=== PATIENT | male | born 1985 | race Caucasian/White ===

== ENCOUNTER 2021-07-07 10:46 | Emergency (ER) | payer BC ==
[2021-07-07 11:21] LABS: Absolute Lymphocytes (CBC) 2.5 K/uL (0.7-4.9); Basophils % 0.6 % (0-1.3); Hematocrit 39.8 % (39.6-49.0); Lymphocytes % 26.4 % (15.3-44.8); MPV 7.1 fL (7.6-11.3); RBC Red Blood Cell Count 5.74 M/uL (4.33-5.43)
[2021-07-07 11:25] LABS: Protime INR 0.99
[2021-07-07 11:31] LABS: Potassium 4.2 mmol/L (3.5-5.1)
--- NOTE | 2021-07-07 12:04 | RAD REPORT ---
EXAM DESCRIPTION: USExtremity Venous Uni Ltd07/07/2021 11:56 am CLINICAL HISTORY: Right leg pain COMPARISON: None. FINDINGS: Right common femoral, superficial femoral, popliteal and right posterior tibial veins are compressible and demonstrate augmentation. Doppler demonstrates good flow. Acute thrombus is present within varicose veins of the right calf IMPRESSION: No evidence of deep venous thrombosis involving the right lower extremity. Acute thrombus within a varicose veins of the right calf
[2021-07-07 12:17] LABS: Platelet Estimate ADEQ
[2021-07-07 12:18] LABS: Anisocytosis 1+; Blood Morphology Comment NOTED (NOT SEEN); Hypochromasia 1+
--- NOTE | 2021-07-07 12:22 | ER ---
Nurse's Notes [facility] Name: Ammon Yañez Age: 35 yrs Sex: Male : 1985 Arrival Date: 07/07/2021 Time: 10:49 Bed 28 Private MD: Diagnosis: Thrombus in varicose vein right leg Presentation: 07/07 10:53 Chief complaint: Patient states: Spontaneous bruising to right lower extremity, denies jl7 trauma, reports pain with palpation. Coronavirus screen: At this time, the client does not indicate any symptoms associated with coronavirus-19. Ebola Screen: No symptoms or risks identified at this time. Risk Assessment: Do you want to hurt yourself or someone else? Patient reports no desire to harm self or others. Onset of symptoms is unknown. 10:53 Method Of Arrival: Ambulatory 7 10:53 Acuity: GARIMA 3 jl7 10:56 Initial Sepsis Screen: Does the patient meet any 2 criteria? No. Patient's initial jl7 sepsis screen is negative. Does the patient have a suspected source of infection? No. Patient's initial sepsis screen is negative. Historical: - Allergies: 10:54 No Known Allergies; jl7 - Home Meds: 10:54 Fluoxetine Oral [Active]; Propranolol Oral [Active]; jl7 10:57 testerone replacement therapy [Active]; jl7 - PMHx: 10:54 ADD/ADHD; Anxiety; jl7 - Immunization history:: Client reports having NOT received the Covid vaccine. - Social history:: Smoking status: unknown. Screenin:01 Abuse screen: Denies threats or abuse. Nutritional screening: No deficits noted. ap3 Tuberculosis screening: No symptoms or risk factors identified. Fall Risk None identified. Assessment: 11:00 General: Appears comfortable, Behavior is calm, cooperative, appropriate for age. Pain: ap3 Complains of pain in right leg and left leg Alleviated by not touching it Aggravated by touch. Neuro: Level of Consciousness is awake, alert, obeys commands, Oriented to person, place, time, situation, Appropriate for age Moves all extremities. Gait is steady, Speech is normal. Cardiovascular: Capillary refill < 3 seconds. Respiratory: Airway is patent Respiratory effort is even, unlabored, Respiratory pattern is regular, symmetrical. Derm: Bruising that is on right leg and left leg. Vital Signs: 10:53 Pulse 115; Resp 15; Temp 97.1; Pulse Ox 100% ; Weight 102.06 kg; Height 5 ft. 9 in. jl7 (175.26 cm); Pain 5/10; 10:56 BP 143 / 92; jl7 10:53 Body Mass Index 33.23 (102.06 kg, 175.26 cm) jl7 ED Course: 10:49 Patient arrived in ED. mr 10:50 Cayla Vazquez FNP-C is [facility]. kb 10:50 Carlo Beard MD is Attending Physician. kb 10:54 Triage completed. jl7 10:56 Arm band placed on right wrist. jl7 10:59 Sindhu Mcbride, RN is Primary Nurse. ap3 11:01 Patient has correct armband on for positive identification. Bed in low position. Call ap3 light in reach. Side rails up X 1. Pulse ox on. NIBP on. Door closed. Noise minimized. 11:56 US Extremity Venous Unilateral Ltd In Process Unspecified. EDMS 11:56 Patient taken to an exam room, via wheelchair. ap3 12:35 No provider procedures requiring assistance completed. IV discontinued, intact, ap3 bleeding controlled, No redness/swelling at site. Pressure dressing applied. Administered Medications: No medications were administered Outcome: 12:22 Discharge ordered by . kb 12:35 Discharged to home ambulatory. ap3 12:35 Condition: good 12:35 Discharge instructions given to patient, Instructed on discharge instructions, follow up and referral plans. Demonstrated understanding of instructions, follow-up care. 12:37 Patient left the ED. ap3 Signatures: Dispatcher [employer] EDAK Cayla Vazquez FNP-C FNP-Ckb RiveraWanda mr ParedesAsh, RN RN jl7 Sindhu Mcbride, RN RN ap3
--- NOTE | 2021-07-07 12:22 | EDPHYS ---
Physician Documentation [facility] Name: Ammon Yañez Age: 35 yrs Sex: Male : 1985 Arrival Date: 07/07/2021 Time: 10:49 Bed 28 Private MD: ED Physician Carlo Beard HPI: 07/07 12:16 This 35 yrs old Male presents to ER via Ambulatory with complaints of kb Bruising. 12:18 The patient presents with pain, swelling, bruising, redness. The complaints affect the kb right velasco. Context: The problem was sustained at home, resulted from an unknown cause, the patient can fully bear weight, the patient is able to ambulate. Onset: The symptoms/episode began/occurred today. Modifying factors: The symptoms are alleviated by nothing. the symptoms are aggravated by nothing. Associated signs and symptoms: Pertinent positives: swelling, Pertinent negatives calf tenderness, fever, nausea, numbness, rash, tingling, vomiting, warmth, weakness. Treatment prior to arrival includes: no previous treatment. Severity of symptoms: At their worst the symptoms were mild, moderate, in the emergency department the symptoms are unchanged. The patient has not experienced similar symptoms in the past. The patient has not recently seen a physician. Pt reports he was outside this morning, noticed some pain to leg and saw bruising, redness and swelling when he looked at it. Denies injury or trauma. Historical: - Allergies: 10:54 No Known Allergies; jl7 - Home Meds: 10:54 Fluoxetine Oral [Active]; Propranolol Oral [Active]; jl7 10:57 testerone replacement therapy [Active]; jl7 - PMHx: 10:54 ADD/ADHD; Anxiety; jl7 - Immunization history:: Client reports having NOT received the Covid vaccine. - Social history:: Smoking status: unknown. ROS: 12:15 Constitutional: Negative for fever, chills, and weight loss. kb 12:15 Skin: Positive for ecchymosis, erythema, of the right velasco. 12:15 All other systems are negative. Exam: 12:15 Constitutional: This is a well developed, well nourished patient who is awake, alert, kb and in no acute distress. Head/Face: Normocephalic, atraumatic. ENT: Moist Mucous membranes Cardiovascular: Regular rate and rhythm with a normal S1 and S2. No gallops, murmurs, or rubs. No pulse deficits. Respiratory: Respirations even and unlabored. No increased work of breathing, no retractions or nasal flaring. MS/ Extremity: Pulses equal, no cyanosis. Neurovascular intact. Full, normal range of motion. Neuro: Awake and alert, GCS 15, oriented to person, place, time, and situation. Moves all extremities. Normal gait. Psych: Awake, alert, with orientation to person, place and time. Behavior, mood, and affect are within normal limits. 12:15 Skin: injury, redness and bruising to medial lower right leg. Vital Signs: 10:53 Pulse 115; Resp 15; Temp 97.1; Pulse Ox 100% ; Weight 102.06 kg; Height 5 ft. 9 in. jl7 (175.26 cm); Pain 5/10; 10:56 BP 143 / 92; jl7 10:53 Body Mass Index 33.23 (102.06 kg, 175.26 cm) jl7 MDM: 10:57 Patient medically screened. kb 12:12 Data reviewed: vital signs, nurses notes. Data interpreted: Pulse oximetry: on room air kb is 100 %. Interpretation: normal. 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 07/07 10:58 Order name: CBC with Diff; Complete Time: 12:23 kb 07/07 10:58 Order name: Basic Metabolic Panel; Complete Time: 11:36 kb 07/07 10:58 Order name: Protime (+inr); Complete Time: 11:29 kb 07/07 10:58 Order name: Ptt, Activated; Complete Time: 11:29 kb 07/07 10:58 Order name: US Extremity Venous Unilateral Ltd; Complete Time: 12:09 kb 07/07 12:17 Order name: Manual Differential; Complete Time: 12:23 EDMS 07/07 10:58 Order name: IV Start; Complete Time: 11:11 kb Administered Medications: No medications were administered Disposition: 13:10 Co-signature as Attending Physician, Carlo Beard MD I agree with the assessment and kdr plan of care. Disposition Summary: 07/07/21 12:22 Discharge Ordered Location: Home kb Condition: Stable kb Diagnosis - Thrombus in varicose vein right leg kb Followup: kb - With: Emergency Department - When: As needed - Reason: Worsening of condition Followup: kb - With: Private Physician - When: 2 - 3 days - Reason: Recheck today's complaints, Continuance of care, Re-evaluation by your physician Discharge Instructions: - Discharge Summary Sheet kb - Varicose Veins kb Forms: - Medication Reconciliation Form kb - Thank You Letter kb - Antibiotic Education kb - Prescription Opioid Use kb - Work release form eb Signatures: Dispatcher [employer] EDMS Cayla Vazquez, SLURRY WORKER-C MENDOZA-Carlo Calero MD MD kdr Leal, Jahala RN RN jl7 Corrections: (The following items were deleted from the chart) 12:12 12:12 Counseling: I had a detailed discussion with the patient and/or guardian kb regarding: the historical points, exam findings, and any diagnostic results supporting the discharge/admit diagnosis, radiology results, the need for outpatient follow up, 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
[2021-07-07 12:42] VITALS: TEMP 97.1; O2SAT 100
[2021-07-07 12:43] VITALS: BP 143/92
== END 2021-07-07 12:37 | disposition home or self-care (01) ==
LOC: ER 10:46
DX: I82.811 Embolism and thrombosis of superficial veins of right lower extremity (principal); F41.9 Anxiety disorder, unspecified; F90.9 Attention-deficit hyperactivity disorder, unspecified type
CPT/HCPCS: 36415; 80048; 85025; 85610; 85730; 93971; 99283

== ENCOUNTER 2021-11-21 12:48 | Emergency (ER) | payer BC, OTHER ==
--- OUTSIDE RECORDS SUMMARY | 2021-11-21 12:52 | XMS REPORT | Continuity of Care Document ---
:1985 Author Organization [facility] t Address [address] [place] [address] Care Team Providers Name Role Phone Pcp, Does Not Have A Primary Care Physician SALVATORE Attending Clinician Unavailable Salvatore ASHLEY Attending Clinician ELIN Attending Clinician Unavailable MD Shruti WOTRHINGTON Attending Clinician Unavailable Lab, Fam Pob I Attending Clinician Unavailable Jorge ASHLEY Attending Clinician JORGE Attending Clinician Unavailable Doctor Unassigned, Name Attending Clinician Unavailable ELIN Admitting Clinician Unavailable MD Shruti WORTHINGTON Admitting Clinician Unavailable Payers Payer Name Policy Type Policy Number Effective Date Expiration Date [facility] [id number] 2021 PPO 00:00:00 Problems Condition Condition Condition Status Onset Resolution Last Treating Co mments Source Name Details Category Date Date Treatment Clinician Date Attention Problem Active 2018-09-04 Me moria deficit 05:00:58 l hyperactiv Luciano n ity Attention disorder deficit (disorder) hyperactiv ity disorder (disorder) Active Problem 09/04/2018 [facility] Allergic Problem Active 2018-09-04 Mem oria dispositio 05:00:58 l n Allergic Luciano n (disorder) dispositio n (disorder) Active Problem 09/04/2018 [facility] Knee pain Problem Active 2018-09-04 Me moria (finding) 05:00:58 l Knee Mauricio pain (finding) Active Problem 09/04/2018 [facility] No known No known Disease Unive rs active active ity of problems problems [facility] History of Past Illness Condition Condition Condition Status Onset Resolution Last Treating Co mments Source Name Details Category Date Date Treatment Clinician Date Other tear Problem 2017-092018-09-04 2018-09-04 Memoria of medial 2-11 05:00:58 05:00:58 l meniscus, Other 06:00: Luciano n current tear of 00 injury, medial left knee, meniscus, subsequent current encounter injury, left knee, subsequent encounter 09/02/2018 09/04/2018 [facility] Allergies, Adverse Reactions, Alerts Allergy Allergy Status Severity Reaction(s) Onset Inactive Treating Comm ents Source Name Type Date Date Clinician Ibuprofe Propensi Active Other - See "bleed" Univers n ty to comments 11-11 ity of adverse 00:00: [place] reaction 00 Medical s Branch IBUPROFE DRUG Active Med Other-Cmnt Univ ers N INGREDI 11-11 ity of 00:00: [place] 00 Medical Branch NO KNOWN Drug Active Univers ALLERGIE Class ity of S [facility] Social History Social Habit Start Date Stop Date Quantity Comments Source Exposure to Not sure [facility] SARS-CoV-2 [place] [facility] (event) [place] Tobacco use and 2021-11-11 2021-11-11 Never used Universit y of exposure 00:00:00 00:00:00 [facility] Alcohol intake 2021-11-11 2021-11-11 Lifetime University of 00:00:00 00:00:00 non-drinker [facility] (finding) [place] Sex Ass[birth year] Universit y of 00:00:00 00:00:00 [facility] Smoking Status Start Date Stop Date Source Unknown if ever smoked Universit y of [facility] Never smoker [facility] Medications Ordered Filled Start Stop Current Ordering Indication Dosage Frequency Signature Comments Components Source Medication Medication Date Date Medication? Clinician (SIG) Name Name methylPREDN 2021- No [id number] 40mg Univers ISolone sod 11-11 ity of succ 21:45: 20:55 [place] (SOLU-MEDRO 00 :00 Medical L (PF)) Branch injection 40 mg methylPREDN 2021- No [id number] 40mg 40 mg, Univers ISolone sod 11-11 Intravenou i ty of succ 21:45: 20:55 s, ONCE, 1 [place] (SOLU-MEDRO 00 :00 dose, On Medi catie L (PF)) Sat Branch injection 11/11/21 at 40 mg 1545, Routine guaiFENesin 2021-0 Yes [id number] 400mg Take 1 Univers 400 mg 2-19 tablet by ity of tablet 00:00: mouth [place] 00 every 4 Medical (four) Branch hours as needed for Cough. bromphenira 2-0 Yes [id number] 5mL Take 5 mL Univers mine-pseudo 2-19 by mouth 4 it y of ephedrine-D 00:00[place] (four[place] (BROMFED 00 times Medical DM) 2-30-10 daily as Bran ch mg/5 mL needed for syrup Congestion /Allergies . benzonatate 2021-0 Yes [id number] 200mg Take 2 Univers 100 mg 2-19 capsules ity of capsule 00:00: by mouth [place] 00 every 8 Medical (eight) Branch hours as needed for Cough. albuterol 2-0 Yes [id number] 2.5mg Inhale 3 Univers 2.5 mg /3 2-19 mL every 4 ity of mL (0.083 00:00: (four) [place] %) 00 hours as Medical nebulizer needed for Bran ch solution Wheezing or Shortness of Breath. ipratropium 2021-0 Yes [id number] .5mg Inhale 2.5 Univers 0.02 % 2-19 mL every 4 ity of nebulizer 00:00: (four) [place] solution 00 hours as Medical needed for Branch Wheezing or Shortness of Breath. Nebulizer & 2021-0 Yes [id number] Use as Univers Compressor 2-19 directed ity o f For Neb 00:00: [place] Vicky 00 Medical Branch guaiFENesin 2-0 Yes [id number] 400mg Take 1 Univers 400 mg 2-19 tablet by ity of tablet 00:00: mouth [place] 00 every 4 Medical (four) Branch hours as needed for Cough. bromphenira 2-0 Yes [id number] 5mL Take 5 mL Univers mine-pseudo 2-19 by mouth 4 it y of ephedrine-D 00:00: (four[place] (BROMFED 00 times Medical DM) 2-30-10 daily as Bran ch mg/5 mL needed for syrup Congestion /Allergies . benzonatate 2-0 Yes [id number] 200mg Take 2 Univers 100 mg 2-19 capsules ity of capsule 00:00: by mouth [place] 00 every 8 Medical (eight) Branch hours as needed for Cough. albuterol Yes [id number] 2.5mg Inhale 3 Univers 2.5 mg /3 2-19 mL every 4 ity of mL (0.083 00:00: (four) [place] %) 00 hours as Medical nebulizer needed for Bran ch solution Wheezing or Shortness of Breath. ipratropium Yes [id number] .5mg Inhale 2.5 Univers 0.02 % 2-19 mL every 4 ity of nebulizer 00:00: (four) [place] solution 00 hours as Medical needed for Branch Wheezing or Shortness of Breath. Nebulizer & Yes [id number] Use as Univers Compressor 2-19 directed ity o f For Neb 00:00: [place] Vicky 00 Medical Branch predniSONE 2021- Yes [id number] 40mg Take 2 Univers 20 mg 2-19 02-25 tablets by ity of tablet 00:00: 05:59 mouth [place] 00 :00 daily for Medical 5 days. Branch predniSONE 2021- Yes [id number] 40mg Take 2 Univers 20 mg 2-19 02-25 tablets by ity of tablet 00:00: 05:59 mouth [place] 00 :00 daily for Medical 5 days. Branch Levalbutero 2017-09 No 0.63 mg = M emoria l 0.21 2-11 3 mL, l MG/ML 18:00: ELIO Gray Herman n Inhalant 00 Once PRN Solution for [Xopenex] wheezing, first dose 09/02/18 12:00:00 CONTRACT SPECIALIST Ondansetron 2017-09 No 4 mg = 2 Me moria 2-11 mL, l 18:00: Injection, [place] 00 IV Push, q15min PRN for nausea, order duration: 2 doses, first dose 09/02/18 12:00:00 CONTRACT SPECIALIST, stop date Limited # of times Promethazin 2017-09 No 12.5 mg = M emoria e 2-11 0.5 mL, l 18:00: Injection, [place] 00 IM, Once PRN for vomiting, first dose 09/02/18 12:00:00 CONTRACT SPECIALIST Saline Lock 2017-09 No 10 mL, Chuck slick Flush 2-11 Soln, IV l 18:00: Push, As Indicated PRN for flush, first dose 09/02/18 12:00:00 CONTRACT SPECIALIST LR 1,000 mL 2017-09 No 1,000 mL, M emoria 2-11 IV, 75 l 18:00: mL/hr, start date 09/02/18 12:00:00 CONTRACT SPECIALIST Diphenhydra 2017-09 No 25 mg = Mem oria mine 2-11 0.5 mL, l 18:00: Injection, IV Push, Once PRN for itching, first dose 09/02/18 12:00:00 CONTRACT SPECIALIST Dilaudid 2017-09 No 0.5 mg = Memor ia 2-11 0.5 mL, l 18:00: Injection, IV Push, q10min PRN for pain severe (7-10), first dose 09/02/18 12:00:00 CONTRACT SPECIALIST Demerol HCl 2017-09 No 12.5 mg = M emoria 2-11 0.5 mL, l 18:00: Injection, IV Push, Once PRN for shivers, first dose 09/02/18 12:00:00 CONTRACT SPECIALIST Lactated 2017-09 No IV, start Chuck slick [place] -11 date l Injection 17:57: 09/02/18 11:57:00 CONTRACT SPECIALIST, stop date 09/02/18 11:57:00 CONTRACT SPECIALIST ketorolac 2017-09 No 30 mg = 1 Mem oria 2-11 mL, l 17:47: Injection, IV, Once, first dose 09/02/18 11:47:00 CONTRACT SPECIALIST, stop date 09/02/18 11:47:00 CONTRACT SPECIALIST ondansetron 2017-09 No 4 mg = 2 Me moria 2-11 mL, l 17:47: Injection, IV, Once, first dose 09/02/18 11:47:00 CONTRACT SPECIALIST, stop date 09/02/18 11:47:00 CONTRACT SPECIALIST Misc 2017-09 No 1,000 mL, Memoria Medication 2-11 Soln-IV, l 17:45: IV, Once, first dose 09/02/18 11:45:00 CONTRACT SPECIALIST, stop date 09/02/18 11:45:00 CONTRACT SPECIALIST fentaNYL 2017-09 No 50 mcg = 1 Mem oria 2-11 mL, l 17:34: Injection, [place] 00 IV, Once, first dose 09/02/18 11:34:00 CONTRACT SPECIALIST, stop date 09/02/18 11:34:00 CONTRACT SPECIALIST fentaNYL 2017-09 No 50 mcg = 1 Mem oria 2-11 mL, l 17:20: Injection, [place] 00 IV, Once, first dose 09/02/18 11:20:00 CONTRACT SPECIALIST, stop date 09/02/18 11:20:00 CONTRACT SPECIALIST fentaNYL 2017-09 No 50 mcg = 1 Mem oria 2-11 mL, l 17:01: Injection, [place] 00 IV, Once, first dose 09/02/18 11:01:00 CONTRACT SPECIALIST, stop date 09/02/18 11:01:00 CONTRACT SPECIALIST ceFAZolin 2017-09 No 2 gm, Memoria 2-11 Soln-IV, l 16:55: IV [place] 00 Piggyback, Once, first dose 09/02/18 10:55:00 CONTRACT SPECIALIST, stop date 09/02/18 10:55:00 CONTRACT SPECIALIST dexamethaso 2017-09 No 8 mg = 2 Me moria ne 2-11 mL, l 16:46: Injection, [place] 00 IV, Once, first dose 09/02/18 10:46:00 CONTRACT SPECIALIST, stop date 09/02/18 10:46:00 CONTRACT SPECIALIST propofol 2017- No 140 mg = Memor ia 2-11 14 mL, l 16:43: Emulsion, [place] 00 IV, Once, first dose 09/02/18 10:43:00 CONTRACT SPECIALIST, stop date 09/02/18 10:43:00 CONTRACT SPECIALIST lidocaine 2017- No 4 mL, Memoria 2-11 Injection, l 16:43: IV, Once, [place] 00 first dose 09/02/18 10:43:00 CONTRACT SPECIALIST, stop date 09/02/18 10:43:00 CONTRACT SPECIALIST fentaNYL 2017-09 No 100 mcg = Chuck slick 2-11 2 mL, l 16:37: Injection, [place] 00 IV, Once, first dose 09/02/18 10:37:00 CONTRACT SPECIALIST, stop date 09/02/18 10:37:00 CONTRACT SPECIALIST midazolam 2017-09 No 2 mg = 2 [place] slick 2-11 mL, l 16:36: Injection, [place] 00 IV, Once, first dose 09/02/18 10:36:00 CONTRACT SPECIALIST, stop date 09/02/18 10:36:00 CONTRACT SPECIALIST Cefazolin 2017-09 No 2 gm, Memoria 2-11 Soln-IV, l 15:00: IV [place] 00 Piggyback, Once, infuse over 30 minutes, first dose 09/02/18 9:00:00 CONTRACT SPECIALIST, stop date 09/02/18 9:00:00 CONTRACT SPECIALIST, patient weight 50-120 kg, Prophylaxi s LR 1,000 mL 2017-09 No 1,000 mL, M emoria 2-11 IV, 30 l 14:09: mL/hr, start date 09/02/18 8:09:00 CONTRACT SPECIALIST Lidocaine 2017-09 No 0.2 mL, Memor ia 2% 0.2 mL 2-11 Injection, l IV Start 14:09: Subcutaneo Her jiang [[place]] 00 us, Once PRN for other (see comment), first dose 09/02/18 8:09:00 CONTRACT SPECIALIST 3-Bead 2017-09 Yes mg caps, Chuck slick HR 2-10 Oral, qAM, l Amphetamine 19:53: 0 Luciano n aspartate 00 Refill(s), 12.5 MG / ADHD Amphetamine Sulfate 12.5 MG / Dextroamphe tamine saccharate 12.5 MG / Dextroamphe tamine Sulfate 12.5 MG Extended Release Oral Capsule [Mydayis] Glucosamine 2017-09 Yes Oral, 0 Mem oria 2-10 Refill(s), l 19:48: supp Mauricio Loratadine 2017-09 Yes 10 mg = 1 Me moria 10 MG Oral 2-10 tabs, l Tablet 19:48: Oral, Mauricio [Claritin] 00 Daily, # 10 tabs, 0 Refill(s), allergy Acetaminoph 2017-09 Yes tabs, Memor ia en 300 MG / 2-10 Oral, l Codeine 19:48: q6hr, 0 [place] Phosphate 00 Refill(s), 30 MG Oral pain Tablet [Tylenol with Codeine #3] ADHD MED 2017-09 No ADHD MED, Chuck slick 2-10 0 l 19:47: Refill(s), [place] 00 ADHD Vital Signs Vital Name Observation Time Observation Value Comments Source Systolic blood 2021-11-11 20:40:00 145 mm[Hg] Univer sity of pressure [facility] Diastolic blood 2021-11-11 20:40:00 95 mm[Hg] Unive rsity of pressure [facility] Heart rate 2021-11-11 20:39:00 100 /min Universi ty [facility] Body temperature 2021-11-11 20:39:00 36.83 Daija [facility] 2021-11-11 20:39:00 20 /min [facility] Body height 2021-11-11 20:39:00 175.3 cm Universi ty [facility] Body weight 2021-11-11 20:39:00 104.373 kg Universi [facility] BMI 2021-11-11 20:39:00 33.98 kg/m2 [facility] Oxygen saturation in 2021-11-11 20:39:00 100 /min University Arterial blood by [facility] Pulse oximetry Branch Systolic (mm Hg) 2018-09-02 19:23:00 Chuck rial Maur[place] Diastolic (mm Hg) 2018-09-02 19:23:00 Mem orial [place] Respitory Rate 2018-09-02 19:23:00 Memori al Mauricio Respitory Rate 2018-09-02 18:50:00 Memori al [place] Systolic (mm Hg) 2018-09-02 18:50:00 Chuck rial Mauricio Diastolic (mm Hg) 2018-09-02 18:50:00 Mem orial [place] Heart Rate 2018-09-02 18:50:00 Memorial Mauricio Heart Rate 2018-09-02 18:40:00 [facility] [place] Respitory Rate 2018-09-02 18:40:00 Memori al [place] Systolic (mm Hg) 2018-09-02 18:40:00 Chuck rial [place] Diastolic (mm Hg) 2018-09-02 18:40:00 Mem orial Mauricio Heart Rate 2018-09-02 18:30:00 Memorial Maur[place] Temperature Oral (F) 2018-09-02 17:50:00 36.6 Daija [facility] Maur[place] Height 2018-09-02 14:21:00 177.88 cm [facility] [place] Temperature Oral (F) 2018-09-02 14:21:00 37 Daija [facility] Mauricio Height 2018-09-01 19:39:00 177.88 cm Gigi Martínez Procedures Procedure Date / Time Performing Clinician Source Performed XR CHEST 2 VW 2021-11-11 20:59:00 Sindhu Chase [place] keyonna curry [facility] ASSIGNMENT OF BENEFITS 2021-04-30 18:35:25 Doctor Unassigned, No [facility] ARTHROSCOPY KNEE 2018-09-02 17:23:00 [facility] haley W/MEDIAL OR LATERAL MENISCECTOMY [id number] (Left)<sup>1</sup> Achilles tendon repair 2016-09-23 00:00:00 Memor iahenrique Martínez Encounters Start End Encounter Admission Attending Care Care Encounter Source Date/Time Date/Time Type Type Clinicians Facility Department ID 2021-11-11 2021-11-11 Outpatient R SALVATORE [facility] [id number] Univers 14:49:47 23:59:00 [facility] 2021-11-11 2021-11-11 [facility] [id number] Univers 14:49:47 23:59:00 Encounter [facility] [id number] ity of [place] [id number] Rey as DOUGLAS?BLEA [id number] [facility] [address] [place] MEDICAL OFFICE [facility] 2021-11-11 2021-11-11 [facility] [id number] Univers 14:40:00 14:58:03 Care [facility] [id number] it y of [place] [id number] Rey as DOUGLAS?BLEA [id number] [facility] [address] [place] MEDICAL OFFICE BUILDING 2021-11-11 2021-11-11 Outpatient R [facility] [id number] Univers 14:40:00 14:40:00 [id number] [facility] 2021-09-04 2021-09-04 Outpatient [facility] [id number] [place] 00:00:00 00:00:00 [place] [address] 2021-09-04 2021-09-04 Outpatient [facility] [id number] [place] 00:00:00 00:00:00 [place] 388 Method i 2021-08-22 2021-08-22 Outpatient ELIN, [facility] [id number] [place] 00:00:00 00:00:00 [place] 065 Method i 2021-08-21 2021-08-21 Outpatient ELIN, [facility] [id number] [place] 00:00:00 00:00:00 [place] 515 Method i 2021-08-21 2021-08-21 Outpatient ELIN, [facility] [id number] [place] 00:00:00 00:00:00 [place] 670 Method i 2021-08-18 2021-08-18 Outpatient ELIN, [facility] [id number] [place] 00:00:00 00:00:00 [place] 108 Method i 2021-08-14 2021-08-14 Outpatient LEIN, [facility] [id number] [place] 00:00:00 00:00:00 [place] 948 Method i 2021-08-14 2021-08-14 Outpatient ELIN, [facility] [id number] [place] 00:00:00 00:00:00 [place] 415 Method i 2021-04-30 2021-04-30 Laboratory Lab, Adc Fam Pob I [facility] [id number] Univers 13:36:34 13:56:34 [facility] [id number] [address] [facility] [id number] Rey as Maxwell [id number] [address] Office Building One 2021-04-30 2021-04-30 Outpatient Neo PATEL [facility] [id number] Univers 13:40:00 13:40:00 , NATASHA ity [facility] 2021-04-30 2021-04-30 Orders Doctor ANDRÉS [id number] Univers 00:00:00 00:00:00 Only UnassignedTHERESA [id number] ity of [facility] [id number] Rey as [id number] [address] 2018-09-02 2018-09-02 Outpatient [facility] [id number] Memoria 13:50:16 19:23:00 [facility] [place] Results Test Description Test Time Test Comments Results Result Comments Source SARS-CoV-2 (COVID-19) RNA [Presence] in Respiratory sp ecimen by 2021-08-22 01:38:39 CYNDI with probe detection Test Item Value Reference Range Interpretation Comme nts SARS-CoV-2 (COVID-19) RNA [Presence] in Respiratory Not detected No t-Detected specimen by CYNDI with probe detection (test code = 37928-4) Whether patient is employed in a healthcare setting (test code = 32685-8) Whether the patient has symptoms related to condition of interest (test code = 01196-2) Patient was hospitalized because of this condition (test code = 64658-2) Whether the patient was admitted to intensive care unit (ICU) for condition of interest (test code = 94007-0) Whether patient resides in a congregate care setting (test code = 89403-7)
[2021-11-21] MEDS ORDERED: NA CHLORIDE 0.9% 1,000 ML ONE (13:08)
[2021-11-21] MEDS ORDERED: METOCLOPRAMIDE 10 MG/2mL INJ ONE (13:08)
[2021-11-21] MEDS ORDERED: KETOROLAC 30 MG/ML INJ ONE (13:28)
[2021-11-21] MEDS ORDERED: DIPHENHYDRAMINE 50 MG/ML VIAL ONE (13:28)
[2021-11-21 13:32] LABS: Urine Blood Negative (Negative); Urine Glucose Trace (Negative); Urine Protein Trace (Negative); Urine pH 7.5 (5.0-7.0)
[2021-11-21 13:32] LABS: Absolute Lymphocytes (CBC) 1.9 K/uL (0.7-4.9); Hematocrit 46.9 % (39.6-49.0); Lymphocytes % 18.7 % (15.3-44.8); MPV 7.2 fL (7.6-11.3)
--- NOTE | 2021-11-21 13:41 | RAD REPORT ---
EXAM DESCRIPTION: CT - Head Brain Wo Cont - 11/21/2021 1:36 pm CLINICAL HISTORY: PAIN, headache, light sensitivity, progressive COMPARISON: No comparisons TECHNIQUE: Axial 5 mm thick images of the head were obtained without IV contrast. All CT scans are performed using dose optimization technique as appropriate and may include automated exposure control or mA/KV adjustment according to patient size. FINDINGS: No intracranial hemorrhage, mass, edema or shift of mid-line structures. No acute infarcti on changes seen. No abnormal extra-axial fluid collections. Ventricles are normal. Mastoid air cells and visualized portions of the paranasal sinuses are clear. No acute bony findings. IMPRESSION: Negative non-contrast CT head examination.
[2021-11-21 13:57] LABS: Albumin 3.9 g/dL (3.4-5.0); Bilirubin Total 0.5 mg/dL (0.2-1.0); Potassium 3.9 mmol/L (3.5-5.1); Protein, Total 7.6 g/dL (6.4-8.2)
--- NOTE | 2021-11-21 15:23 | EDPHYS ---
Physician Documentation [facility] Name: Ammon Yañez Age: 36 yrs Sex: Male : 1985 Arrival Date: 11/21/2021 Time: 12:54 Bed 24 Private MD: Chris Flynn B ED Physician Jameel Gonsalves HPI: 11/21 13:37 This 36 yrs old Male presents to ER via Ambulatory with complaints of Headache. ma2 13:37 The patient complains of pain to the forehead. Onset: The symptoms/episode ma2 began/occurred gradually, 1 day(s) ago. The patient has experienced similar episodes in the past. Gradual headache, for 1 day unchanged, patient states he has migraine and he had similar headaches in the past.. Historical: - Allergies: 13:05 No Known Allergies; iw - Home Meds: 13:11 Fluoxetine Oral [Active]; Vyvanse 50 mg Oral cap 1 cap once daily [Active]; Propranolol lr4 Oral [Active]; tadalafil (pulmonary hypertension) oral [Active]; clonazepam 0.5 mg Oral tab nightly [Active]; testerone replacement therapy [Active]; - PMHx: 13:11 ADD/ADHD; Anxiety; lr4 - PSHx: 13:11 achilles; hernia; lr4 - Immunization history:: Client reports having NOT received the Covid vaccine. - Social history:: Smoking status: Patient denies any tobacco usage or history of. Patient uses Patient/guardian denies using alcohol, street drugs, The patient lives with family. - Family history:: not pertinent. ROS: 13:37 Constitutional: Negative for fever, chills, and weight loss. ma2 13:37 All other systems are negative. Exam: 13:37 Constitutional: This is a well developed, well nourished patient who is awake, alert, ma2 and in no acute distress. Head/Face: Normocephalic, atraumatic. Eyes: Pupils equal round and reactive to light, extra-ocular motions intact. Lids and lashes normal. Conjunctiva and sclera are non-icteric and not injected. Cornea within normal limits. Periorbital areas with no swelling, redness, or edema. ENT: Nares patent. No nasal discharge, no septal abnormalities noted. Tympanic membranes are normal and external auditory canals are clear. Oropharynx with no redness, swelling, or masses, exudates, or evidence of obstruction, uvula midline. Mucous membranes moist. Neck: Trachea midline, no thyromegaly or masses palpated, and no cervical lymphadenopathy. Supple, full range of motion without nuchal rigidity, or vertebral point tenderness. No Meningismus. Chest/axilla: Normal chest wall appearance and motion. Nontender with no deformity. No lesions are appreciated. Cardiovascular: Regular rate and rhythm with a normal S1 and S2. No gallops, murmurs, or rubs. Normal PMI, no JVD. No pulse deficits. Respiratory: Lungs have equal breath sounds bilaterally, clear to auscultation and percussion. No rales, rhonchi or wheezes noted. No increased work of breathing, no retractions or nasal flaring. Abdomen/GI: Soft, non-tender, with normal bowel sounds. No distension or tympany. No guarding or rebound. No evidence of tenderness throughout. Skin: Warm, dry with normal turgor. Normal color with no rashes, no lesions, and no evidence of cellulitis. MS/ Extremity: Pulses equal, no cyanosis. Neurovascular intact. Full, normal range of motion. Neuro: Awake and alert, GCS 15, oriented to person, place, time, and situation. Cranial nerves II-XII grossly intact. Motor strength 5/5 in all extremities. Sensory grossly intact. Cerebellar exam normal. Normal gait. Psych: Awake, alert, with orientation to person, place and time. Behavior, mood, and affect are within normal limits. Vital Signs: 13:07 BP 147 / 111; Pulse 78; Resp 18; Temp 98.9(O); Pulse Ox 97% on R/A; Weight 106.59 kg lr4 (R); Height 5 ft. 10 in. (177.80 cm) (R); Pain 10/10; 13:48 BP 146 / 104; Pulse 65; Resp 18; Pulse Ox 100% on R/A; lr4 14:16 BP 140 / 95; Pulse 79; Resp 18; Pulse Ox 97% on R/A; lr4 15:11 BP 156 / 100; Pulse 94 LA; Resp 18; Pulse Ox 99% ; ss7 13:07 Body Mass Index 33.72 (106.59 kg, 177.80 cm) lr4 MDM: 12:57 Patient medically screened. ma2 13:40 Differential diagnosis: hypoglycemia, hyponatremia, migraine, sinusitis. Data reviewed: ma2 vital signs, nurses notes. Counseling: I had a detailed discussion with the patient and/or guardian regarding: the historical points, exam findings, and any diagnostic results supporting the discharge/admit diagnosis, the presence of at least one elevated blood pressure reading (>120/80) during this emergency department visit, the need for outpatient follow up. 11/21 13:21 Order name: CBC with Diff ma2 11/21 13:21 Order name: CMP; Complete Time: 14:47 ma2 11/21 13:21 Order name: CT Head Brain wo Cont; Complete Time: 13:55 ma2 11/21 13:22 Order name: CBC with Automated Diff; Complete Time: 13:55 EDMS 11/21 13:31 Order name: Urine Dipstick-Ancillary; Complete Time: 13:55 EDMS 11/21 13:21 Order name: Urine Dipstick-Ancillary (obtain specimen); Complete Time: 13:31 ma2 Administered Medications: 13:30 Drug: Reglan (metoCLOPramide) 20 mg Route: IVP; Site: right antecubital; lr4 13:35 Follow up: Response: No adverse reaction; Pain is decreased; Nausea is decreased lr4 13:32 Drug: Benadryl (diphenhydrAMINE) 50 mg Route: IVP; Site: right antecubital; lr4 13:35 Follow up: Response: No adverse reaction; Pain is decreased lr4 13:33 Drug: Ketorolac 30 mg Route: IVP; Site: right antecubital; lr4 13:35 Follow up: Response: No adverse reaction; Pain is decreased lr4 13:35 Drug: NS 0.9% 1000 ml Route: IV; Rate: 1 bolus; Site: right antecubital; lr4 14:30 Follow up: IV Status: Completed infusion ss7 Disposition Summary: 11/21/21 15:22 Discharge Ordered Location: Home ma2 Condition: Stable ma2 Diagnosis - Headache ma2 Followup: ma2 - With: Private Physician - When: Tomorrow - Reason: If symptoms return, Continuance of care Followup: ma2 - With: - When: Tomorrow - Reason: If symptoms return, Continuance of care Discharge Instructions: - Discharge Summary Sheet ma2 - Migraine Headache ma2 Forms: - Medication Reconciliation Form ma2 - Thank You Letter ma2 - Antibiotic Education ma2 - Prescription Opioid Use ma2 Prescriptions: - Reglan 10 mg Oral Tablet - take 1 tablet by ORAL route every 6 hours . take 30 minutes before meals and at ma2 bedtime; 100 tablet; Refills: 0, Product Selection Permitted - Diclofenac Sodium 75 mg Oral Tablet Sustained Release - take 1 tablet by ORAL route 2 times per day; 30 tablet; Refills: 0, Product ma2 Selection Permitted Signatures: Dispatcher [employer] Jana Lofton RN RN Jameel Gonsalves MD MD ma2 Katia Pena RN RN lr4 Tawny Valadez RN ss7 Corrections: (The following items were deleted from the chart) 13:12 13:05 Home Meds: [facility]oxetine Oral; [facility] 13:12 13:05 Home Meds: Propranolol Oral; [facility] 13:12 13:05 Home Meds: Vyvanse 50 mg Oral cap 1 cap once daily; [facility] 13:12 13:05 Home Meds: tadalafil (pulmonary hypertension) oral; [facility] 13:12 13:05 PMHx: ADD/ADHD; [facility] 13:12 13:05 PMHx: Anxiety; [facility] 13:12 13:05 PSHx: hernia; [facility] 13:12 13:05 PSHx: achilles; lr4
--- NOTE | 2021-11-21 15:23 | ER ---
Nurse's Notes [facility] Name: Ammon Yañez Age: 36 yrs Sex: Male : 1985 Arrival Date: 11/21/2021 Time: 12:54 Bed 24 Private MD: Chris Flynn B Diagnosis: Headache Presentation: 11/21 13:02 Chief complaint: Patient states: headache since Saturday evening , +nausea, +sensitive to iw light and sound, had COVID in Sep, had 3 rounds of abx and steroids , denies fever , +hx of migraines but this feels different. Coronavirus screen: headache, Client presents with at least one sign or symptom that may indicate coronavirus-19. Ebola Screen: Patient negative for fever greater than or equal to 101.5 degrees Fahrenheit, and additional compatible Ebola Virus Disease symptoms Patient denies exposure to infectious person. Patient denies travel to an Ebola-affected area in the 21 days before illness onset. No symptoms or risks identified at this time. Initial Sepsis Screen: Does the patient meet any 2 criteria? No. Patient's initial sepsis screen is negative. Does the patient have a suspected source of infection? No. Patient's initial sepsis screen is negative. Risk Assessment: Do you want to hurt yourself or someone else? Patient reports no desire to harm self or others. Onset of symptoms was November 19, 2021. 13:02 Method Of Arrival: Ambulatory iw 13:02 Acuity: GARIMA 3 iw Triage Assessment: 13:09 Headache History: Denies prior headaches. General: Appears in no apparent distress. lr4 comfortable, Behavior is calm, appropriate for age. Pain: Complains of pain in head Pain currently is 10 out of 10 on a pain scale. Quality of pain is described as pressure, Pain began 2-3 days ago. Also complains of nausea, photophobia. Neuro: No deficits noted. Cardiovascular: No deficits noted. Respiratory: No deficits noted. Historical: - Allergies: 13:05 No Known Allergies; iw - Home Meds: 13:11 Fluoxetine Oral [Active]; Vyvanse 50 mg Oral cap 1 cap once daily [Active]; Propranolol lr4 Oral [Active]; tadalafil (pulmonary hypertension) oral [Active]; clonazepam 0.5 mg Oral tab nightly [Active]; testerone replacement therapy [Active]; - PMHx: 13:11 ADD/ADHD; Anxiety; lr4 - PSHx: 13:11 achilles; hernia; lr4 - Immunization history:: Client reports having NOT received the Covid vaccine. - Social history:: Smoking status: Patient denies any tobacco usage or history of. Patient uses Patient/guardian denies using alcohol, street drugs, The patient lives with family. - Family history:: not pertinent. Screenin:10 Abuse screen: Denies threats or abuse. Nutritional screening: No deficits noted. lr4 Tuberculosis screening: No symptoms or risk factors identified. Fall Risk None identified. Assessment: 15:12 Reassessment: see triage assessment.. ss7 Vital Signs: 13:07 BP 147 / 111; Pulse 78; Resp 18; Temp 98.9(O); Pulse Ox 97% on R/A; Weight 106.59 kg lr4 (R); Height 5 ft. 10 in. (177.80 cm) (R); Pain 10/10; 13:48 BP 146 / 104; Pulse 65; Resp 18; Pulse Ox 100% on R/A; lr4 14:16 BP 140 / 95; Pulse 79; Resp 18; Pulse Ox 97% on R/A; lr4 15:11 BP 156 / 100; Pulse 94 LA; Resp 18; Pulse Ox 99% ; ss7 13:07 Body Mass Index 33.72 (106.59 kg, 177.80 cm) lr4 ED Course: 12:54 Patient arrived in ED. kz 12:54 Chris Flynn MD is Private Physician. kz 12:56 Jameel Gonsalves MD is Attending Physician. ma2 12:58 Tawny Valadez, SHIN is Primary Nurse. ss7 13:05 Triage completed. iw 13:08 Arm band placed on. iw 13:09 Inserted saline lock: 20 gauge in right antecubital area, using aseptic technique. ss7 13:11 No provider procedures requiring assistance completed. lr4 13:13 Patient has correct armband on for positive identification. Bed in low position. Call lr4 light in reach. Adult w/ patient. Door closed. Noise minimized. Lights dimmed. Verbal reassurance given. 13:31 Urine Dipstick-Ancillary Sent. ss7 13:31 CBC with Automated Diff Sent. ss7 13:31 CMP Sent. ss7 13:31 CBC with Diff Sent. ss7 13:34 CT Head Brain wo Cont In Process Unspecified. EDMS 15:11 IV discontinued. ss7 15:22 Josh Grimes MD is Referral Physician. ma2 Administered Medications: 13:30 Drug: Reglan (metoCLOPramide) 20 mg Route: IVP; Site: right antecubital; lr4 13:35 Follow up: Response: No adverse reaction; Pain is decreased; Nausea is decreased lr4 13:32 Drug: Benadryl (diphenhydrAMINE) 50 mg Route: IVP; Site: right antecubital; lr4 13:35 Follow up: Response: No adverse reaction; Pain is decreased lr4 13:33 Drug: Ketorolac 30 mg Route: IVP; Site: right antecubital; lr4 13:35 Follow up: Response: No adverse reaction; Pain is decreased lr4 13:35 Drug: NS 0.9% 1000 ml Route: IV; Rate: 1 bolus; Site: right antecubital; lr4 14:30 Follow up: IV Status: Completed infusion ss7 Outcome: 15:12 Discharged to home ambulatory. ss7 15:12 Condition: improved 15:12 Discharge instructions given to patient, S.O. to drive pt home 15:22 Discharge ordered by . nm2 15:31 Patient left the ED. ss7 Signatures: Dispatcher [employer] EDJana Neville RN Jameel Hyatt MD MD ma2 Tawny Valadez RN RN ss7 Katia Pena RN RN lr4 Kelsey Mullins Corrections: (The following items were deleted from the chart) 13:12 13:05 Home Meds: Fluoxetine Oral; lr4 13:12 13:05 Home Meds: Propranolol Oral; iw lr4 13:12 13:05 Home Meds: Vyvanse 50 mg Oral cap 1 cap once daily; iw lr4 13:12 13:05 Home Meds: tadalafil (pulmonary hypertension) oral; lr4 13:12 13:05 PMHx: ADD/ADHD; iw lr4 13:12 13:05 PMHx: Anxiety; iw lr4 13:12 13:05 PSHx: hernia; iw lr4 13:12 13:05 PSHx: achilles; iw lr4
[2021-11-21 15:54] VITALS: TEMP 98.9
[2021-11-21 15:58] VITALS: BP 156/100; O2SAT 99
== END 2021-11-21 15:31 | disposition home or self-care (01) ==
LOC: ER 12:48
DX: R51.9 Headache, unspecified (principal); F41.9 Anxiety disorder, unspecified
CPT/HCPCS: 85025; 36415; 81003; 80053; 70450; J2765; J1200; J7030; 96361; 96374; 96375; 99284